=== PATIENT | female | born 1955 | race Caucasian/White ===

== ENCOUNTER → 2019-06-04 | Outpatient (CLI) | payer BC ==
[~2019-06-04] MED LIST: OMNIPAQUE 350 MG/ML, 100ML BOTTLE ONE
== END | disposition home or self-care (01) ==
LOC: CFH 13:14
PROVIDERS: ATTEND Pathology Hematology
DX: C49.A2 Gastrointestinal stromal tumor of stomach (principal); K44.9 Diaphragmatic hernia without obstruction or gangrene; K76.89 Other specified diseases of liver; I77.4 Celiac artery compression syndrome; K55.1 Chronic vascular disorders of intestine; M47.816 Spondylosis without myelopathy or radiculopathy, lumbar region; M51.26 Other intervertebral disc displacement, lumbar region
CPT/HCPCS: 71260; 74177; Q9967

== ENCOUNTER → 2019-12-11 | Day surgery (SDC) | payer BC ==
[~2019-12-11] VITALS: Ht 152.4 cm; Wt 66.7 kg
[~2019-12-11] MED LIST changes: +ACETAMINOPHEN 325 MG TABLET PO PRN; +AMLO10TA8 PO; +ASPI-515 PO; +BUPIVACAINE/PF 0.25% INFIL ONE; +BUPIVACAINE/PF 0.25% ONE; +CEFAZOLIN 1,000 MG ONE; +CEFOTETAN PMX 1GM/50ML 50 ML IV ONE; +CEFOTETAN PMX 1GM/50ML 50 ML ONE; +CEFOXITIN 1,000 MG ONE; +CHLORHEXIDINE 15 ML UDC MM ONE; +CHLORHEXIDINE 15 ML UDC ONE; +D5%-0.45% NACL 1,000 ML IV ONE; +DEXAMETHASONE 4 MG/ML, 1ML ONE; +ENALAPRILAT 1.25 MG/ML, 2ML IV ONE; +ENALAPRILAT 1.25 MG/ML, 2ML ONE; +FENTANYL PF 100 MCG/2ML ONE; +FENTANYL PF 250 MCG/5ML ONE; +GLYCOPYRROLATE 0.2MG/1ML, 5ML ONE; +HALOPERIDOL 5 MG/ML IV PRN; +HYDROcodone/APAP 5/325 TABLET PO PRN; +HYDROmorphone 1 MG/ML, 1ML INJ IVPush PRN; +KETOROLAC 30 MG/1 ML ONE; +LABETALOL 5MG/ML, 20ML IV PRN; +LOSA100T14 PO; +MEPERIDINE/PF 25MG/0.5ML IVPush PRN; +MIDAZOLAM 1 MG/ML, 2ML ONE; +MORPHINE SULFATE 4 MG/ML, 1ML IVPush PRN; +NEOSTIGMINE 1 MG/ML, 10ML ONE; +ONDANSETRON 2MG/ML, 2ML IVPush PRN; +ONDANSETRON 2MG/ML, 2ML ONE; +OXYcodone 5 MG/5 ML ORAL.SOL UDC ONE; +OXYcodone 5 MG/5 ML ORAL.SOL UDC PO PRN; +PROMETHAZINE 25 MG/ML, 1ML IVPush PRN; +PROPOFOL 10 MG/ML, 20ML ONE; +ROCURONIUM 10 MG/ML,10ML ONE; +SODIUM CHLORIDE FLUSH 10ML SYR IVF ONE; +SODIUM CHLORIDE FLUSH 10ML SYR IVF PRN; +SUCCINYLCHOLINE 20 MG/ML, 10ML ONE; +SUGAMMADEX 200 MG/2 ML IVPush ONE; +hydrALAzine 20 MG/ML, 1ML IV PRN; +morphine SULFATE 10 MG/ML, 1ML IVPush PRN
--- NOTE | 2019-12-11 07:24 | NUR ---
Pt here for sudden onset or RLQ abdominal pain. Described as an "ache". Pt has HX of stomach CA with remission. Denies hematuria, dysuria, nausea or vomiting.
[2019-12-11 07:40] LABS: ALANINE AMINOTRANSFERASE 15 U/L (12-78); ALBUMIN 3.5 g/dL (3.4-5.0); ANION GAP 6 mmol/L (5-15); CALCIUM 9.1 mg/dL (8.5-10.1); CHLORIDE 104 mmol/L (98-107); CREATININE 0.93 mg/dL (0.55-1.02)
[2019-12-11 07:42] LABS: ALKALINE PHOSPHATASE 74 U/L (45-117); BASOPHILS % (AUTO) 1 % (0-1); BILIRUBIN,TOTAL 0.7 mg/dL (0.2-1.0); EOSINOPHILS % (AUTO) 3 % (1-7); LYMPHOCYTES % (AUTO) 17 % (22-44); MEAN CORPUSCULAR HGB CONC 33.3 g/dL (32.4-35.8); MONOCYTES % (AUTO) 7 % (2-9); NEUTROPHILS % (AUTO) 72 % (42-75); PLATELET COUNT 242 x10^3/uL (130-400); RED BLOOD COUNT 5.45 x10^6/uL (3.82-5.3); RED CELL DISTRIBUTION WIDTH 14.1 % (9.6-15.2); TOTAL PROTEIN 7.9 g/dL (6.4-8.2)
[2019-12-11 07:45] LABS: MD NO
[2019-12-11 08:55] LABS: MICROSCOPIC NOT IND
--- NOTE | 2019-12-11 09:18 | NUR ---
Pt updated on POC. To go to OR.
--- NOTE | 2019-12-11 09:28 | NUR ---
Covid swab sent to lab, ABX infusing.
--- NOTE | 2019-12-11 10:07 | NUR ---
Pt resting, on phone with family, updated on POC.
--- NOTE | 2019-12-11 10:10 | NUR ---
Report provided to RUY Buchanan.
[2019-12-11 10:42] VITALS: BP 142/62
[2019-12-11] MEDS: FENTANYL PF 100 MCG/2ML IV PRN ×3 (13:36→13:52)
[2019-12-11 15:43] VITALS: BP 132/48
== END | disposition home or self-care (01) ==
LOC: ED 08:50 → 4NE 10:37 → ED 10:37 → EDSTATUS 12:47 → ED 14:43 → 4NE 17:18
PROVIDERS: ATTEND Emergency Medicine
DX: K35.30 Acute appendicitis with localized peritonitis, without perforation or gangrene (principal); R10.31 Right lower quadrant pain; I10 Essential (primary) hypertension; Z85.028 Personal history of other malignant neoplasm of stomach; Z20.828 Contact with and (suspected) exposure to other viral communicable diseases; Z90.710 Acquired absence of both cervix and uterus; Z98.890 Other specified postprocedural states; Z79.899 Other long term (current) drug therapy; Z72.89 Other problems related to lifestyle; Z79.82 Long term (current) use of aspirin
CPT/HCPCS: 36415; 44970; 74177; 80053; 81003; 85025; 87635; 88304; 96374; 96375; 99285; C1894; J0330; J0690; J1100; J1885; J2250; J2405; J2704; J2710; J3010; J3490; Q9967; G0378; J0694

== ENCOUNTER → 2019-12-14 | Outpatient (CLI) | payer BC ==
[~2019-12-14] MED LIST changes: -ACETAMINOPHEN 325 MG TABLET PO PRN; -BUPIVACAINE/PF 0.25% INFIL ONE; -BUPIVACAINE/PF 0.25% ONE; -CEFAZOLIN 1,000 MG ONE; -CEFOTETAN PMX 1GM/50ML 50 ML IV ONE; -CEFOTETAN PMX 1GM/50ML 50 ML ONE; -CEFOXITIN 1,000 MG ONE; -CHLORHEXIDINE 15 ML UDC MM ONE; -CHLORHEXIDINE 15 ML UDC ONE; -D5%-0.45% NACL 1,000 ML IV ONE; -DEXAMETHASONE 4 MG/ML, 1ML ONE; -ENALAPRILAT 1.25 MG/ML, 2ML IV ONE; -ENALAPRILAT 1.25 MG/ML, 2ML ONE; -FENTANYL PF 100 MCG/2ML ONE; -FENTANYL PF 250 MCG/5ML ONE; -GLYCOPYRROLATE 0.2MG/1ML, 5ML ONE; -HALOPERIDOL 5 MG/ML IV PRN; -HYDROcodone/APAP 5/325 TABLET PO PRN; -HYDROmorphone 1 MG/ML, 1ML INJ IVPush PRN; -KETOROLAC 30 MG/1 ML ONE; -LABETALOL 5MG/ML, 20ML IV PRN; -MEPERIDINE/PF 25MG/0.5ML IVPush PRN; -MIDAZOLAM 1 MG/ML, 2ML ONE; -MORPHINE SULFATE 4 MG/ML, 1ML IVPush PRN; -NEOSTIGMINE 1 MG/ML, 10ML ONE; -OMNIPAQUE 350 MG/ML, 100ML BOTTLE ONE; +OMNIPAQUE 350 MG/ML, 75ML BOTTLE ONE; -ONDANSETRON 2MG/ML, 2ML IVPush PRN; -ONDANSETRON 2MG/ML, 2ML ONE; -OXYcodone 5 MG/5 ML ORAL.SOL UDC ONE; -OXYcodone 5 MG/5 ML ORAL.SOL UDC PO PRN; -PROMETHAZINE 25 MG/ML, 1ML IVPush PRN; -PROPOFOL 10 MG/ML, 20ML ONE; -ROCURONIUM 10 MG/ML,10ML ONE; -SODIUM CHLORIDE FLUSH 10ML SYR IVF ONE; -SODIUM CHLORIDE FLUSH 10ML SYR IVF PRN; -SUCCINYLCHOLINE 20 MG/ML, 10ML ONE; -SUGAMMADEX 200 MG/2 ML IVPush ONE; -hydrALAzine 20 MG/ML, 1ML IV PRN; -morphine SULFATE 10 MG/ML, 1ML IVPush PRN
== END | disposition home or self-care (01) ==
LOC: CFH 08:57
PROVIDERS: ATTEND Pathology Hematology
DX: C49.A2 Gastrointestinal stromal tumor of stomach (principal)
CPT/HCPCS: 71260; Q9967

== ENCOUNTER → 2020-06-30 | Outpatient (CLI) | payer BC ==
[~2020-06-30] MED LIST changes: +AMLO-211 PO; -AMLO10TA8 PO; -ASPI-515 PO; +ASPI-963 PO; +OMNIPAQUE 350 MG/ML, 100ML BOTTLE ONE; -OMNIPAQUE 350 MG/ML, 75ML BOTTLE ONE
== END | disposition home or self-care (01) ==
LOC: CFH 08:07
PROVIDERS: ATTEND Pathology Hematology
DX: C49.A2 Gastrointestinal stromal tumor of stomach (principal); M47.817 Spondylosis without myelopathy or radiculopathy, lumbosacral region; Z90.710 Acquired absence of both cervix and uterus
CPT/HCPCS: 74177; Q9967

== ENCOUNTER 2020-07-16 07:56 | Outpatient (CLI) | payer BC ==
[~2020-07-16 07:56] MED LIST changes: -OMNIPAQUE 350 MG/ML, 100ML BOTTLE ONE
[2020-07-16] MEDS ORDERED: REGADENOSON 0.4 MG/5 ML SYRINGE ONE (11:19)
== END 2020-07-16 23:59 | disposition home or self-care (01) ==
LOC: CFH 07:56
PROVIDERS: ATTEND Internal Medicine Cardiovascular Disease
DX: R94.31 Abnormal electrocardiogram [ECG] [EKG] (principal); R07.89 Other chest pain
CPT/HCPCS: 78452; 93017; A9502; J2785